=== PATIENT | male | born 1970 | race Two or more races ===

== ENCOUNTER 2022-10-14 06:09 | Inpatient (IN) | payer OTHER ==
[~2022-10-14] VITALS: Ht 177.8 cm; Wt 90.5 kg
[2022-10-14] MEDS ORDERED: HYDROcodone-ACET 5/325MG TAB PO PRN (10:00)
[2022-10-14] MEDS ORDERED: ALUM & MAG HYDROX-SIMETH LIQ(MAALOX) 30 ML PO PRN (10:00)
[2022-10-14] MEDS ORDERED: ACETAMINOPHEN 325 MG TAB PO PRN (10:00)
[2022-10-14] MEDS ORDERED: MORPHINE SULFATE INJ 2 MG/ml SYRG IV PRN ×2 (10:00)
[2022-10-14] MEDS ORDERED: DOCUSATE SOD 100 MG CAP PO PRN (10:00)
[2022-10-14] MEDS ORDERED: LORazepam 0.5 MG TAB PO PRN (10:00)
[2022-10-14] MEDS ORDERED: NITROGLYCERIN 0.4 MG SL TAB SL PRN (10:00)
[2022-10-14] MEDS ORDERED: ONDANSETRON HCL 4 MG/2 ML VIAL IV PRN (10:00)
[2022-10-14 10:45] LABS: Basophils # (auto) 0 10 ^3/uL (0-0.2); Basophils % (auto) 0.5 % (0.0-2.0); Eosinophils # (auto) 0.1 10 ^3/uL (0-0.8); Eosinophils % (auto) 2.3 % (0.0-7.0); Hematocrit 41.3 % (41.0-53.0); Hemoglobin 14.4 g/dL (13.5-17.5); Lymphocytes # (auto) 1.5 10 ^3/uL (0.4-5.4); Lymphocytes % (auto) 38.4 % (10.0-50.0); Mean Corpuscular Hemoglobin 31.8 pg (28.0-32.0); Mean Corpuscular Volume 91.1 fL (80.0-100.0); Monocytes # (auto) 0.4 10 ^3/uL (0-1.3); Monocytes % (auto) 10.9 % (0.0-12.0); Neutrophils # (auto) 1.9 10 ^3/uL (1.6-8.6); Neutrophils % (auto) 47.9 % (37.0-80.0); Nucleated Red Blood Cells % 0.1 %; Red Blood Cells 4.53 10^6/uL (4.5-5.90); Red Cell Distribution Width 13.7 % (11.8-14.3); White Blood Cell 3.9 10^3/uL (4.4-10.8)
[2022-10-14 11:02] LABS: INR 1.06 (0.9-1.15); Partial Thromboplastin Time 29.4 sec (24.6-33.4)
[2022-10-14 11:21] LABS: Albumin 3.6 g/dL (3.4-5.0); BUN/Creatinine Ratio 13.3; Bilirubin, Total 0.6 mg/dL (0.2-1.0); Calcium 8.6 mg/dL (8.5-10.1); Magnesium 2.2 mg/dL (1.6-2.6); Potassium 4.2 mmol/L (3.5-5.1); Total Protein 6.8 g/dL (6.4-8.2)
[2022-10-14 12:35] VITALS: BP 120/84
[2022-10-14] MEDS: SODIUM CHLOR 0.9% PF (SALINE LOCK) 10ML VIAL/SYR IV SCH ×2 (14:40→22:08)
[2022-10-14 16:29] VITALS: BP 113/68
[2022-10-14] MEDS ORDERED: RANO1000 PO (18:34)
[2022-10-14] MEDS ORDERED: ATOR10TA PO (18:34)
[2022-10-14] MEDS ORDERED: METO-289 PO (18:34)
[2022-10-14] MEDS ORDERED: EZET10TA22 PO (18:34)
[2022-10-14] MEDS ORDERED: BUSP10TA90 PO (18:34)
[2022-10-14 19:03] LABS: Urine Bacteria NONE SEEN /hpf (None Seen); Urine Blood Negative /uL (Negative); Urine Specific Gravity 1.021 (1.001-1.035); Urine WBC <1 /hpf (0 - 3)
[2022-10-14 19:25] LABS: Alcohol, Urine < 3.0 mg/dL (0-10); Amphetamine Screen, Urine NEGATIVE (NEGATIVE); Barbiturate Scree,Urine NEGATIVE (NEGATIVE); Benzodiazephine Screen, Urine NEGATIVE (NEGATIVE); Cannabinoid Screen, Urine NEGATIVE (NEGATIVE); Cocaine Screen, Urine NEGATIVE (NEGATIVE); Opiate Scree,Urine NEGATIVE (NEGATIVE); Phencyclidine Screen, Urine NEGATIVE (NEGATIVE)
[2022-10-14 19:30] VITALS: BP 120/87
[2022-10-14 21:30] VITALS: BP 129/72
[2022-10-14] MEDS: ATORVASTATIN 20 MG TAB PO SCH (22:05)
[2022-10-15 05:00] VITALS: BP 120/87
[2022-10-15] MEDS: SODIUM CHLOR 0.9% PF (SALINE LOCK) 10ML VIAL/SYR IV SCH ×3 (06:19→20:58)
[2022-10-15] MEDS ORDERED: ADENOSINE 75 MG in GIVE UN-DILUTED 0 ML IV ONE (08:15)
[2022-10-15 08:58] VITALS: BP 130/76
[2022-10-15] MEDS: ASPirin 81 mg TAB PO SCH (09:56)
[2022-10-15] MEDS ORDERED: ERGOCALCIFEROL 50,000 UNIT(1.25MG) CAP PO SCH (10:00)
[2022-10-15 12:55] VITALS: BP 125/79
[2022-10-15 17:11] VITALS: BP 134/79
[2022-10-15] MEDS: ATORVASTATIN 20 MG TAB PO SCH (20:58)
[2022-10-15 22:00] VITALS: BP 127/84
[2022-10-16 05:00] VITALS: BP 110/71
[2022-10-16] MEDS: SODIUM CHLOR 0.9% PF (SALINE LOCK) 10ML VIAL/SYR IV SCH ×2 (05:00→14:15)
[2022-10-16 08:43] VITALS: BP 141/93
[2022-10-16] MEDS ORDERED: HEPARIN SODIUM (PORCINE) 5000 UNITS/ML 1ML VIAL ONE (09:55)
[2022-10-16] MEDS ORDERED: ANGIOMAX 250 MG VIAL IV ONE (09:55)
[2022-10-16] MEDS ORDERED: VERAPAMIL 2.5MG/ML INJ 2ML VIAL IV ONE (09:56)
[2022-10-16] MEDS ORDERED: MIDAZOLAM HCL 2MG/2ML 2ml VIAL (1mg/ml) ONE (09:56)
[2022-10-16] MEDS ORDERED: fentaNYL CITRATE 100 MCG/2 ML VL ONE (09:56)
[2022-10-16] MEDS ORDERED: SODIUM CHL 0.9% 0 ML ONE (09:57)
[2022-10-16] MEDS ORDERED: IODIXANOL 320MG/ML 100ML BTL IV ONE (09:57)
[2022-10-16] MEDS ORDERED: LIDOCAINE 2%HCL (LOCAL ANESTH.) INJ 20ML MDV ONE (09:57)
[2022-10-16] MEDS: ASPirin 81 mg TAB PO SCH (10:00)
[2022-10-16 10:51] VITALS: BP 129/87
[2022-10-16 11:04] VITALS: BP 124/79
[2022-10-16 11:19] VITALS: BP 119/73
[2022-10-16 11:34] VITALS: BP 133/93
== END 2022-10-16 14:30 | disposition home or self-care (01) | DRG 287 ==
LOC: EDSTATUS 09:09 → TELE-WESTW 09:11
PROVIDERS: ADMIT Internal Medicine; ATTEND Internal Medicine
PROC: 4A023N7 Measurement of Cardiac Sampling and Pressure, Left Heart, Percutaneous Approach (ICD-10-PCS; principal; 2022-10-16)
PROC: B211YZZ Fluoroscopy of Multiple Coronary Arteries using Other Contrast (ICD-10-PCS; 2022-10-16)
PROC: B215YZZ Fluoroscopy of Left Heart using Other Contrast (ICD-10-PCS; 2022-10-16)
DX: I25.10 Atherosclerotic heart disease of native coronary artery without angina pectoris (principal); R07.9 Chest pain, unspecified; E55.9 Vitamin D deficiency, unspecified; R73.03 Prediabetes; F41.9 Anxiety disorder, unspecified; E78.5 Hyperlipidemia, unspecified; I10 Essential (primary) hypertension; Z95.5 Presence of coronary angioplasty implant and graft; Z87.891 Personal history of nicotine dependence
CPT/HCPCS: 36415; 71046; 71250; 78452; 80053; 80061; 80307; 81001; 82306; 83036; 83735; 84443; 84484; 85025; 85610; 85730; 87426; 93005; 93017; 93306; 93458; 99152; 99153; G0378; J0153; J2250; Q9967

== ENCOUNTER 2023-06-24 05:58 | Inpatient (IN) | payer OTHER ==
[~2023-06-24] VITALS: Ht 180.3 cm; Wt 93.0 kg
[~2023-06-24 05:58] MED LIST: ATOR10TA PO; BUSP10TA90 PO; EZET10TA22 PO; METO-289 PO; RANO1000 PO
[2023-06-24 12:50] VITALS: PULSE 71; RESP 16; O2SAT 96
[2023-06-24 14:00] VITALS: BP 130/88; PULSE 64; RESP 18; TEMP 98.1; O2SAT 97
[2023-06-24] MEDS ORDERED: LORazepam 0.5 MG TAB PO PRN (14:00)
[2023-06-24] MEDS ORDERED: ACETAMINOPHEN 325 MG TAB PO PRN (14:00)
[2023-06-24] MEDS ORDERED: ONDANSETRON HCL 4 MG/2 ML VIAL IV PRN (14:00)
[2023-06-24] MEDS ORDERED: MORPHINE SULFATE INJ 2 MG/ml SYRG IV PRN (14:00)
[2023-06-24] MEDS ORDERED: HYDROmorphone HCL 2 MG/ML VL/or syr IV PRN (14:00)
[2023-06-24] MEDS ORDERED: DOCUSATE SOD 100 MG CAP PO PRN (14:00)
[2023-06-24] MEDS ORDERED: HYDROcodone-ACET 5/325MG TAB PO PRN (14:00)
[2023-06-24] MEDS ORDERED: NITROGLYCERIN 0.4 MG SL TAB SL PRN (14:00)
[2023-06-24] MEDS ORDERED: MAALOX PLUS or MAALOX 30 ML PO PRN (14:00)
[2023-06-24] MEDS: SODIUM CHLOR 0.9% PF (SALINE LOCK) 10ML VIAL/SYR IV SCH ×2 (14:00→21:17)
[2023-06-24 15:53] LABS: Basophils # (auto) 0 10 ^3/uL (0-0.2); Basophils % (auto) 0.3 % (0.0-2.0); Eosinophils # (auto) 0.1 10 ^3/uL (0-0.8); Eosinophils % (auto) 1.8 % (0.0-7.0); Hematocrit 41.4 % (41.0-53.0); Hemoglobin 14.6 g/dL (13.5-17.5); Lymphocytes # (auto) 1.5 10 ^3/uL (0.4-5.4); Lymphocytes % (auto) 32.9 % (10.0-50.0); Mean Corpuscular Hemoglobin 31.7 pg (28.0-32.0); Mean Corpuscular Hgb Conc. 35.3 g/dL (32.0-36.0); Mean Corpuscular Volume 89.8 fL (80.0-100.0); Monocytes # (auto) 0.5 10 ^3/uL (0-1.3); Monocytes % (auto) 10.9 % (0.0-12.0); Neutrophils # (auto) 2.5 10 ^3/uL (1.6-8.6); Neutrophils % (auto) 54.1 % (37.0-80.0); Nucleated Red Blood Cells % 0.1 %; Red Blood Cells 4.61 10^6/uL (4.5-5.90); Red Cell Distribution Width 13.4 % (11.8-14.3); White Blood Cell 4.6 10^3/uL (4.4-10.8)
[2023-06-24 15:58] LABS: Albumin 3.8 g/dL (3.4-5.0); Magnesium 2.3 mg/dL (1.6-2.6); Potassium 3.9 mmol/L (3.5-5.1)
[2023-06-24 16:02] LABS: BUN/Creatinine Ratio 11.2 (10.0-20.0); Bilirubin, Total 0.7 mg/dL (0.2-1.0)
[2023-06-24 16:09] LABS: INR 1.06 (0.9-1.15)
[2023-06-24] MEDS ORDERED: ATORVASTATIN 20 MG TAB PO ONE (17:00)
[2023-06-24 17:03] VITALS: BP 131/86; PULSE 63; RESP 18; TEMP 97.9; O2SAT 96
[2023-06-24 17:57] LABS: Cholesterol 258 mg/dL (< 200); HDL Cholesterol 48 mg/dL (40-59); LDL Cholesterol 159 mg/dL (< 100); Triglycerides 226 mg/dL (< 150)
[2023-06-24 20:00] VITALS: BP 122/82; PULSE 75; PULSE 77; RESP 18; TEMP 98.1; O2SAT 94
[2023-06-24 22:00] VITALS: BP 122/82; PULSE 75; RESP 18; TEMP 98.1; O2SAT 94
[2023-06-25] VITALS (8 sets, daily range): BP systolic 120–146; BP diastolic 80–101; PULSE 63–78; RESP 16–20; TEMP 98–98.4; O2SAT 94–96
[2023-06-25 05:23] LABS: Basophils # (auto) 0 10 ^3/uL (0-0.2); Basophils % (auto) 0.4 % (0.0-2.0); Eosinophils # (auto) 0.1 10 ^3/uL (0-0.8); Eosinophils % (auto) 2.3 % (0.0-7.0); Hematocrit 40.8 % (41.0-53.0); Hemoglobin 14.5 g/dL (13.5-17.5); Lymphocytes # (auto) 1.5 10 ^3/uL (0.4-5.4); Mean Corpuscular Hemoglobin 31.8 pg (28.0-32.0); Mean Corpuscular Hgb Conc. 35.4 g/dL (32.0-36.0); Mean Corpuscular Volume 89.8 fL (80.0-100.0); Monocytes # (auto) 0.6 10 ^3/uL (0-1.3); Neutrophils # (auto) 3.3 10 ^3/uL (1.6-8.6); Neutrophils % (auto) 59.3 % (37.0-80.0); Red Blood Cells 4.54 10^6/uL (4.5-5.90); Red Cell Distribution Width 13.6 % (11.8-14.3); White Blood Cell 5.6 10^3/uL (4.4-10.8)
[2023-06-25] MEDS: SODIUM CHLOR 0.9% PF (SALINE LOCK) 10ML VIAL/SYR IV SCH ×3 (05:27→22:00)
[2023-06-25 05:38] LABS: Calcium 8.6 mg/dL (8.5-10.1); Potassium 3.7 mmol/L (3.5-5.1)
[2023-06-25 05:44] LABS: Albumin 3.6 g/dL (3.4-5.0); BUN/Creatinine Ratio 15.1 (10.0-20.0); Bilirubin, Total 0.4 mg/dL (0.2-1.0); Total Protein 6.9 g/dL (6.4-8.2)
[2023-06-25] MEDS ORDERED: ATORVASTATIN 20 MG TAB PO ONE (08:45)
[2023-06-25] MEDS ORDERED: RANOLAZINE ER 500 MG TAB PO ONE (09:00)
[2023-06-25] MEDS ORDERED: ENOXAPARIN SOD 40 MG/0.4 ML SYRINGE SC SCH (10:00)
[2023-06-25] MEDS ORDERED: ASPirin 81 mg TAB PO SCH (10:00)
[2023-06-25] MEDS ORDERED: CLOPIDOGREL BISULFATE 75 MG TAB PO SCH (10:00)
[2023-06-26] MEDS ORDERED: PANTOPRAZOLE 40 MG TAB PO SCH (10:00)
== END 2023-06-25 22:00 | disposition home or self-care (01) | DRG 392 ==
LOC: TELE-CENTR 11:04
PROVIDERS: ADMIT Internal Medicine
DX: K22.4 Dyskinesia of esophagus (principal); I25.10 Atherosclerotic heart disease of native coronary artery without angina pectoris; E78.5 Hyperlipidemia, unspecified; I11.9 Hypertensive heart disease without heart failure; K21.9 Gastro-esophageal reflux disease without esophagitis; Z95.5 Presence of coronary angioplasty implant and graft; Z87.891 Personal history of nicotine dependence; Z79.899 Other long term (current) drug therapy; F41.9 Anxiety disorder, unspecified; Z79.82 Long term (current) use of aspirin; Z79.02 Long term (current) use of antithrombotics/antiplatelets
CPT/HCPCS: 36415; 80053; 80061; 83036; 83735; 84443; 84484; 85025; 85610; 85730; 93306; G0378; J2405